=== PATIENT | female | born 2000 | race Two or more races ===

== ENCOUNTER 2020-07-09 14:55 | Emergency (ER) | payer BC ==
[~2020-07-09] VITALS: Ht 144.8 cm; Wt 76.7 kg
[2020-07-09 17:01] LABS: BASOPHIL % 0.6 % (0.2-1.3); PLATELET COUNT 275 x10^3mcL (179-408); RED CELL DISTRIBUTION WIDTH 13.2 % (12.3-17.7)
[2020-07-09 17:19] LABS: CALCIUM 8.9 mg/dL (8.5-10.1); CARBON DIOXIDE 24.9 mmol/L (21-32); CHLORIDE SERUM 105 mmol/L (98-107); CREATININE SERUM 0.6 mg/dL (0.6-1.0); GFR1 > 60 mL/min; GLUCOSE SERUM 92 mg/dL (74-106); POTASSIUM SERUM 4.1 mmol/L (3.5-5.1); SODIUM SERUM 140 mmol/L (136-145)
[2020-07-09] MEDS ORDERED: MOT600 PO (17:45)
[2020-07-09] MEDS ORDERED: MAALOX MAXIMUM355 ML PO (17:45)
[2020-07-09] MEDS ORDERED: KEF500 PO (18:03)
[2020-07-09 18:23] VITALS: BP 121/78
== END 2020-07-09 18:23 | disposition home or self-care (01) ==
LOC: ED 14:55
PROVIDERS: Student in an Organized Health Care Education/Training Program
DX: F41.9 Anxiety disorder, unspecified (principal); N39.0 Urinary tract infection, site not specified; J45.909 Unspecified asthma, uncomplicated
CPT/HCPCS: 84439